=== PATIENT | female | born 1950 | race Caucasian/White ===

== ENCOUNTER 2019-05-25 06:39 | Inpatient (IN) | payer MEDICARE ==
[2019-05-14 15:42] LABS: BASOPHILS % (AUTO) 0.5 % (0-1); EOSINOPHILS % (AUTO) 0.6 % (0-6); LYMPHOCYTES # (AUTO) 1.1 X10'3 (1.1-4.8); LYMPHOCYTES % (AUTO) 15.9 % (21-51); MEAN CORPUSCULAR HEMOGLOBIN 34.6 PG (27.0-31.0); MEAN CORPUSCULAR HGB CONC 33.7 g/dL (33.0-36.5); MEAN CORPUSCULAR VOLUME 102.6 FL (78-98); MEAN PLATELET VOLUME 8.2 FL (7.4-10.4); MONOCYTES # (AUTO) 0.4 X10'3 (0-0.9); MONOCYTES % (AUTO) 6.4 % (2-12); NEUTROPHILS # (AUTO) 5.1 X10'3 (1.8-7.7); NEUTROPHILS % (AUTO) 76.6 % (42-75); PRE OP HEMATOCRIT 41.5 % (35.0-45.0); PRE OP PLATELET COUNT 337 X10'3 (140-440); RED BLOOD COUNT 4.05 X10'6 (4.20-5.60); RED CELL DISTRIBUTION WIDTH 12.9 % (11.5-14.5)
[2019-05-14 15:56] LABS: PRE OP PROTIME 10.1 SECONDS (9.0-12.0)
[2019-05-14 16:09] LABS: ALBUMIN 4.2 G/DL (3.4-5.0); ALBUMIN/GLOBULIN RATIO 1.2 (1.1-1.5); ALKALINE PHOSPHATASE 71 IU/L (46-116); BLOOD UREA NITROGEN 22 MG/DL (7-18); BUN/CREATININE RATIO 16.4 (6.6-38.0); CALCIUM 9.5 MG/DL (8.5-10.1); CHLORIDE 106 MMOL/L (99-107); CREATININE 1.34 MG/DL (0.40-0.90); PRE OP ALT 21 U/L (30-65); PRE OP ANION GAP 8 (8-16); PRE OP AST 14 U/L (10-37); PRE OP BILIRUB, TOTAL 0.3 MG/DL (0.0-1.0); PRE OP GLUCOSE 111 MG/DL (70-104); PRE OP SODIUM 141 MMOL/L (135-145); TOTAL PROTEIN 7.6 G/DL (6.4-8.2); eGFR 39 ML/MIN
[2019-05-25] VITALS (17 sets, daily range): BP systolic 79–149; BP diastolic 54–88
[~2019-05-25] VITALS: Ht 162.6 cm; Wt 103.6 kg
[~2019-05-25 06:39] MED LIST: AMLO10TA2 PO; ATOR40TA PO; ERGO500041 PO; FENO145T38 PO; FLUO-1 PO; HYDR-3972 PO; HYDR-4069 PO; IRBE300T19 PO; LEVO100T46 PO; MORP15TA PO; NORMAL SALINE IV ONE; OMEP40CA13 PO; SPIR25TA5 PO; TRANEXAMIC ACID IV ONE; cefazolin/dext.iso 2gm/50ml 50 ML IV ONE; famotidine 20mg tablet PO ONE; ringers solution, lacted 1,000 ML IV SCH; vancomycin inj 1,500 MG in normal saline 300ml IV soln IV ONE
[2019-05-25] MEDS ORDERED: FLU VACC QS2019-20 36MOS UP/PF 60 MCG/0.5 ML SYRINGE IMVAC ONE (10:15)
[2019-05-25] MEDS ORDERED: ROPIVAcaine 0.5% (5mg/ml) 30ml vial ONE ×2 (10:20→10:58)
[2019-05-25] MEDS ORDERED: HYDROcodone/acetaminophen 10/325mg tab PO ONE (10:20)
[2019-05-25] MEDS ORDERED: ketorolac trometh. 30mg/ml inj. ONE (10:20)
[2019-05-25] MEDS ORDERED: fentaNYL/PF 50MCG/1 ML 2ML syringe ONE ×3 (10:56→13:29)
[2019-05-25] MEDS ORDERED: midazolam 2 mg/2 ml injection ONE ×2 (10:56→13:30)
[2019-05-25] MEDS ORDERED: succinylcholine 20mg/ml inj IV ONE (10:56)
[2019-05-25] MEDS ORDERED: propofol inj 20 ML IV ONE (10:57)
[2019-05-25] MEDS ORDERED: LIDOcaine 2% (20mg/ml) 5ml vial ONE ×2 (10:57)
[2019-05-25] MEDS ORDERED: tranexamic acid inj. 1,000 MG in normal saline 100ml IV soln 100 ML IV ONE ×5 (11:00→18:30)
[2019-05-25] MEDS ORDERED: ringers solution, lacted 1,000 ML IV SCH (12:22)
[2019-05-25] MEDS ORDERED: sevoflurane 250ml liquid IH ONE (12:23)
[2019-05-25] MEDS ORDERED: dexamethasone sod phosphate 10mg/ml inj ONE (12:23)
[2019-05-25] MEDS ORDERED: labetalol 20mg/4ml (5mg/ml) syringe IV PRN (12:25)
[2019-05-25] MEDS ORDERED: fentaNYL/PF 50MCG/1 ML 2ML syringe IV PRN ×2 (12:25)
[2019-05-25] MEDS ORDERED: hydrALAZINE 20mg/ml inj. IV PRN (12:25)
[2019-05-25] MEDS ORDERED: morphine 4 MG/ML inj SYRINge IV PRN ×2 (12:25)
[2019-05-25] MEDS ORDERED: ondansetron/PF 4mg/2ml inj IV PRN ×2 (12:25→15:10)
[2019-05-25] MEDS ORDERED: ROPIVAcaine 0.2%/PF PAIN PUMP 550 ML IJ SCH ×2 (13:00→22:48)
[2019-05-25] MEDS ORDERED: ondansetron/PF 4mg/2ml inj ONE (13:18)
[2019-05-25] MEDS ORDERED: labetalol 20mg/4ml (5mg/ml) syringe IV ONE (14:24)
--- NOTE | 2019-05-25 14:53 | NUR ---
Received from OR via ORTHO BED WITH [facility] , accompanied by Anesthesiologist JENNI and report given by Anesthesiolgist. PATIENT WITH KYMBERLY HEAVENLY DONNED. LEFT UE WITH 20G PIV IN PLACE WITH LR RUNNING AT 100. PATIENT WITH SHOULDER WRAP AND POWDER PACK PRESENT TO RIGHT SHOUDER> + CAP REFILL AND WITH NERVE BLOCK TO RIGHT SHOULDER EXITING WITH CATHETER TO LEFT SHOULDER AREA. DONNED ON Q PUMP UPON ARRIVAL. Addendum: 05/25/19 at 1517 by Matthew Parham RN, RN Amended: Links added.
[2019-05-25] MEDS ORDERED: diphenhydrAMINE 25mg capsule PO PRN ×2 (15:10)
[2019-05-25] MEDS ORDERED: HYDROmorphone inj. 0.5 MG/0.5 ML DISP.SYRIN IV PRN (15:10)
[2019-05-25] MEDS ORDERED: oxyCODONE IR 5mg (immed. release) tablet PO PRN (15:10)
[2019-05-25] MEDS ORDERED: bisacodyl 10mg suppository rectal RC PRN (15:10)
[2019-05-25] MEDS ORDERED: HYDROmorphone 1 mg/ml syringe IV PRN (15:10)
[2019-05-25] MEDS ORDERED: magnesium hydroxide 30ml (MOM) UD suspension PO PRN (15:10)
[2019-05-25] MEDS ORDERED: acetaminophen 325mg tablet PO PRN (15:10)
--- NOTE | 2019-05-25 15:43 | NUR ---
ALL CRITERIA FOR TRANSFER TO THE FLOOR HAS BEEN ACHIEVED. VSS. BED LOW, CALL LIGHT AND VS. SET IN PLACE. RN PRESENT TO ACCEPT CARE. PATIENT RESTING COMFORTABLY IN BED. BELONGINGS SENT WITH PATIENT. DRESSINGS CDI. BABAK STAPLES PRESENT TO ASSIST WITH SET UP, 3 BAGS DELIVERED TO ROOM 4013B TALL CABINET. CARE TURNED OVER. Addendum: 05/25/19 at 1550 by Matthew Parham RN, RN Amended: Links added.
--- NOTE | 2019-05-25 15:54 | NUR ---
Patient in room ORTHO 4013. I have received report from chad Gonsales RN and had the opportunity to ask questions and assume patient care.
[2019-05-25] MEDS: ceFAZolin 1GM/D5W- ADD-VANTAGE 50 ML IV SCH (17:10)
--- NOTE | 2019-05-25 18:15 | NUR ---
Patient in room ORTHO 4013. I have received report from BABAK Bower and had the opportunity to ask questions and assume patient care.
--- NOTE | 2019-05-25 18:21 | NUR ---
Problems reprioritized. Patient report given, questions answered & plan of care reviewed with Kimberly.
[2019-05-25] MEDS: potassium cl 20mEq in 1/2 NS 1,000 ML IV SCH ×2 (18:32→23:06)
[2019-05-25] MEDS ORDERED: mag hydrox/Alum hydrox/simeth 30ml oral suspension PO PRN (19:55)
[2019-05-25] MEDS ORDERED: vancomycin/NS 1 GM ADD-VANTAGE 250 ML IV SCH (20:00)
[2019-05-25] MEDS: acetaminophen 325mg tablet PO SCH (20:04)
[2019-05-25] MEDS: morphine ER 15mg tablet PO SCH (20:05)
[2019-05-25] MEDS: hydrALAZINE 25 MG tablet PO SCH (20:05)
[2019-05-25] MEDS ORDERED: spironolactone 25 MG tablet PO SCH (21:00)
[2019-05-25] MEDS ORDERED: sennosides 8.6mg tablet PO SCH (21:00)
[2019-05-26] MEDS: ceFAZolin 1GM/D5W- ADD-VANTAGE 50 ML IV SCH (00:41)
[2019-05-26] MEDS: acetaminophen 325mg tablet PO SCH ×2 (02:00→07:31)
[2019-05-26] MEDS: oxyCODONE IR 5mg (immed. release) tablet PO PRN ×2 (02:41→08:23)
[2019-05-26 03:30] VITALS: BP 128/65
[2019-05-26 06:00] VITALS: BP 116/77
--- NOTE | 2019-05-26 06:20 | NUR ---
Patient in room ORTHO 4013. I have received report from Kimberly and had the opportunity to ask questions and assume patient care.
--- NOTE | 2019-05-26 06:23 | NUR ---
Problems reprioritized. Patient report given, questions answered & plan of care reviewed with BABAK Bower.
[2019-05-26 06:42] LABS: BASOPHILS % (AUTO) 0.2 % (0-1); EOSINOPHILS % (AUTO) 0 % (0-6); HEMATOCRIT 34.2 % (35.0-45.0); HEMOGLOBIN 11.4 g/dl (12.0-16.0); LYMPHOCYTES # (AUTO) 0.6 X10'3 (1.1-4.8); LYMPHOCYTES % (AUTO) 6.7 % (21-51); MEAN CORPUSCULAR HEMOGLOBIN 34.3 PG (27.0-31.0); MEAN CORPUSCULAR HGB CONC 33.4 g/dL (33.0-36.5); MEAN CORPUSCULAR VOLUME 102.6 FL (78-98); MEAN PLATELET VOLUME 8.3 FL (7.4-10.4); MONOCYTES # (AUTO) 0.7 X10'3 (0-0.9); MONOCYTES % (AUTO) 7.8 % (2-12); NEUTROPHILS # (AUTO) 7.6 X10'3 (1.8-7.7); NEUTROPHILS % (AUTO) 85.3 % (42-75); PLATELET COUNT 242 X10'3 (140-440); RED BLOOD COUNT 3.34 X10'6 (4.20-5.60); RED CELL DISTRIBUTION WIDTH 12.9 % (11.5-14.5); WHITE BLOOD COUNT 8.9 X10'3 (4.5-11.0)
[2019-05-26] MEDS: potassium cl 20mEq in 1/2 NS 1,000 ML IV SCH ×2 (07:06→08:24)
[2019-05-26 07:28] LABS: ANION GAP 9 (8-16); CHLORIDE 103 MMOL/L (99-107); POTASSIUM 4.4 MMOL/L (3.5-5.1); SODIUM 138 MMOL/L (135-145)
[2019-05-26] MEDS: hydrALAZINE 25 MG tablet PO SCH (07:28)
[2019-05-26] MEDS: morphine ER 15mg tablet PO SCH (07:29)
[2019-05-26 07:37] VITALS: BP 143/80
[2019-05-26] MEDS ORDERED: atorvastatin 20mg tablet PO SCH (08:00)
[2019-05-26] MEDS ORDERED: amLODIPine 5mg tablet PO SCH (08:00)
[2019-05-26] MEDS ORDERED: FLUoxetine 20mg capsule PO SCH (08:00)
[2019-05-26] MEDS ORDERED: levoTHYROXINE 125mcg tablet PO SCH (08:00)
[2019-05-26] MEDS ORDERED: fenofibrate 145mg tablet PO SCH (08:00)
[2019-05-26] MEDS ORDERED: losartan 50mg tablet PO SCH (08:00)
[2019-05-26] MEDS ORDERED: aspirin 325mg tablet PO SCH (08:30)
--- NOTE | 2019-05-26 10:55 | NUR ---
Reviewed discharge instructions with pt. Pt verbalized understanding. Pt is alert, oriented and does not have c/o pain or discomfort at this time. All of pt's belongings were returned to pt. Pt was wheeled downstairs where she will be driven home by family/friend.
[2019-05-27] MEDS ORDERED: acetaminophen 325mg tablet PO PRN (15:10)
[2019-05-31] MEDS ORDERED: ergocalciferol (Vitamin D) 50,000 unit capsule PO SCH (15:10)
== END 2019-05-26 10:45 | disposition home or self-care (01) | DRG 483 ==
LOC: PAS IN 06:39 → EDSTATUS 09:45 → PAS IN 15:25 → ORTHO 4S 15:50
PROVIDERS: ADMIT Orthopaedic Surgery; ATTEND Orthopaedic Surgery
PROC: 0LS30ZZ Reposition Right Upper Arm Tendon, Open Approach (ICD-10-PCS; 2019-05-25)
PROC: 0RHJ04Z Insertion of Internal Fixation Device into Right Shoulder Joint, Open Approach (ICD-10-PCS; 2019-05-25)
PROC: 0RRJ0JZ Replacement of Right Shoulder Joint with Synthetic Substitute, Open Approach (ICD-10-PCS; principal; 2019-05-25 12:23)
DX: M19.011 Primary osteoarthritis, right shoulder (principal); D62 Acute posthemorrhagic anemia; E66.9 Obesity, unspecified; Z96.651 Presence of right artificial knee joint; I10 Essential (primary) hypertension; E03.9 Hypothyroidism, unspecified; N18.3 Chronic kidney disease, stage 3 (moderate); I12.9 Hypertensive chronic kidney disease with stage 1 through stage 4 chronic kidney disease, or unspecified chronic kidney disease; I48.91 Unspecified atrial fibrillation; M75.21 Bicipital tendinitis, right shoulder; K21.9 Gastro-esophageal reflux disease without esophagitis; I25.10 Atherosclerotic heart disease of native coronary artery without angina pectoris; F32.9 Major depressive disorder, single episode, unspecified; E78.5 Hyperlipidemia, unspecified; Z79.899 Other long term (current) drug therapy; Z79.890 Hormone replacement therapy; Z79.82 Long term (current) use of aspirin; Z95.0 Presence of cardiac pacemaker; Z86.73 Personal history of transient ischemic attack (TIA), and cerebral infarction without residual deficits; Z68.39 Body mass index [BMI] 39.0-39.9, adult
CPT/HCPCS: 36415; 80051; 80053; 82948; 84443; 85025; 85610; 85730; 87081; 97161; 97530; A4565; A4618; A7000; A9272; C1713; C1776; G0378; J0330; J0690; J1100; J1885; J2001; J2250; J2405; J2704; J2795; J3010; J3370; J3480; J3490; J7120; Q2037

== ENCOUNTER 2020-04-07 05:35 | Inpatient (IN) | payer MEDICARE ==
[2020-03-31 14:56] LABS: BASOPHILS % (AUTO) 0.5 % (0-1); EOSINOPHILS # (AUTO) 0.1 X10'3 (0-0.9); LYMPHOCYTES # (AUTO) 0.6 X10'3 (1.1-4.8); LYMPHOCYTES % (AUTO) 10.9 % (21-51); MEAN CORPUSCULAR HEMOGLOBIN 33.3 PG (27.0-31.0); MEAN CORPUSCULAR HGB CONC 32.9 g/dL (33.0-36.5); MEAN CORPUSCULAR VOLUME 101.4 FL (78-98); MEAN PLATELET VOLUME 8.3 FL (7.4-10.4); MONOCYTES # (AUTO) 0.4 X10'3 (0-0.9); MONOCYTES % (AUTO) 7.6 % (2-12); NEUTROPHILS # (AUTO) 4.6 X10'3 (1.8-7.7); PRE OP HEMATOCRIT 38.3 % (35.0-45.0); PRE OP HEMOGLOBIN 12.6 g/dL (12.0-16.0); PRE OP PLATELET COUNT 306 X10'3 (140-440); RED BLOOD COUNT 3.78 X10'6 (4.20-5.60)
[2020-03-31 15:20] LABS: ALBUMIN 3.8 G/DL (3.4-5.0); ALBUMIN/GLOBULIN RATIO 1.3 (1.1-1.5); ALKALINE PHOSPHATASE 71 IU/L (46-116); BLOOD UREA NITROGEN 21 MG/DL (7-18); BUN/CREATININE RATIO 14.7 (6.6-38.0); CALCIUM 9.3 MG/DL (8.5-10.1); CHLORIDE 105 MMOL/L (99-107); CREATININE 1.43 MG/DL (0.40-0.90); PRE OP ALT 25 U/L (30-65); PRE OP ANION GAP 6 (8-16); PRE OP AST 20 U/L (10-37); PRE OP BILIRUB, TOTAL 0.5 MG/DL (0.0-1.0); PRE OP GLUCOSE 96 MG/DL (70-104); PRE OP POTASSIUM 4.1 MMOL/L (3.4-5.1); PRE OP SODIUM 139 MMOL/L (135-145); TOTAL CARBON DIOXIDE 28.4 MMOL/L (24-32); TOTAL PROTEIN 6.8 G/DL (6.4-8.2); eGFR 36 ML/MIN
[~2020-04-07] VITALS: Ht 167.6 cm; Wt 106.1 kg
[~2020-04-07 05:35] MED LIST changes: -ERGO500041 PO; +FURO40TA4 PO; +IRBE300T18 PO; -IRBE300T19 PO; +MORP-92 PO; -MORP15TA PO; -NORMAL SALINE IV ONE; +POTA-82 PO; -TRANEXAMIC ACID IV ONE; +ceFAZolin 2gm in dextrose, iso 50 ML IV ONE; -cefazolin/dext.iso 2gm/50ml 50 ML IV ONE; +tranexamic acid 1gm/0.7% sal. 100 ML IV ONE; +vancomycin 1,500 MG in NS 300ml IV soln IV ONE; -vancomycin inj 1,500 MG in normal saline 300ml IV soln IV ONE
--- NOTE | 2020-04-07 06:30 | NUR ---
PT HAD DOG SCRATCH TO LEFT FOREARM, DR. CENTENO AWARE AND CANCELLED SURGERY. OFFICE WILL RESCHEDULE. PT TOOK ALL BELONGINGS WITH HER UPON DISCHARGE INCLUDING HER CPAP. PT VERY COOPERATIVE AND UNDERSTANDING REGARDING CANCELLATION.
== END 2020-04-07 06:30 | disposition home or self-care (01) | DRG 554 ==
LOC: PAS IN 05:35 → EDSTATUS 07:30
PROVIDERS: ADMIT Orthopaedic Surgery; ATTEND Orthopaedic Surgery
DX: M19.012 Primary osteoarthritis, left shoulder (principal); Z53.8 Procedure and treatment not carried out for other reasons
CPT/HCPCS: 36415; 80053; 84443; 85025; 87081; 87635; J3370; J7040; J7120

== ENCOUNTER 2021-12-29 12:00 | Day surgery (SDC) | payer BC ==
[~2021-12-29] VITALS: Ht 167.6 cm; Wt 99.8 kg
[~2021-12-29 12:00] MED LIST changes: -OMEP40CA13 PO; +OMEP40CA21 PO; -ceFAZolin 2gm in dextrose, iso 50 ML IV ONE; -famotidine 20mg tablet PO ONE; -ringers solution, lacted 1,000 ML IV SCH; -tranexamic acid 1gm/0.7% sal. 100 ML IV ONE; -vancomycin 1,500 MG in NS 300ml IV soln IV ONE
[2021-12-29 16:19] LABS: LYMPHOCYTES # (AUTO) 0.9 X10'3 (1.1-4.8); MONOCYTES # (AUTO) 0.5 X10'3 (0-0.9); MONOCYTES % (AUTO) 8.8 % (2-12); PRE OP HEMOGLOBIN 13.4 g/dL (12.0-16.0)
[2021-12-29 16:20] LABS: BASOPHILS % (AUTO) 0.6 % (0-1); EOSINOPHILS % (AUTO) 0.9 % (0-6); LYMPHOCYTES % (AUTO) 16.3 % (21-51); MEAN CORPUSCULAR HEMOGLOBIN 34.1 PG (27.0-31.0); MEAN CORPUSCULAR HGB CONC 33.1 g/dL (33.0-36.5); MEAN CORPUSCULAR VOLUME 103.1 FL (78-98); MEAN PLATELET VOLUME 8.1 FL (7.4-10.4); NEUTROPHILS % (AUTO) 73.4 % (42-75); PRE OP HEMATOCRIT 40.6 % (35.0-45.0); PRE OP PLATELET COUNT 271 X10'3 (140-440); RED BLOOD COUNT 3.94 X10'6 (4.20-5.60); RED CELL DISTRIBUTION WIDTH 12.8 % (11.5-14.5)
[2021-12-29 16:33] LABS: ALBUMIN 3.9 G/DL (3.4-5.0); ALBUMIN/GLOBULIN RATIO 1.3 (1.1-1.5); ALKALINE PHOSPHATASE 62 IU/L (46-116); BLOOD UREA NITROGEN 14 MG/DL (7-18); BUN/CREATININE RATIO 16.7 (6.6-38.0); CALCIUM 8.7 MG/DL (8.5-10.1); CHLORIDE 106 MMOL/L (99-107); CREATININE 0.84 MG/DL (0.40-0.90); PRE OP ALT 17 U/L (30-65); PRE OP ANION GAP 7 (8-16); PRE OP AST 17 U/L (10-37); PRE OP BILIRUB, TOTAL 0.5 MG/DL (0.0-1.0); PRE OP GLUCOSE 86 MG/DL (70-104); PRE OP SODIUM 140 MMOL/L (135-145); TOTAL CARBON DIOXIDE 26.8 MMOL/L (24-32); TOTAL PROTEIN 6.9 G/DL (6.4-8.2); eGFR 66 ML/MIN
[2021-12-29] MEDS ORDERED: TRAZ150T78 PO (16:34)
[2021-12-29] MEDS ORDERED: TRAM50TA2 PO (16:34)
[2022-01-04] MEDS ORDERED: FENO160T PO (13:49)
[2022-01-04] MEDS ORDERED: LEVO125T8 PO (13:49)
[2022-01-05] MEDS ORDERED: ringers solution, lacted 1,000 ML IV SCH (05:00)
[2022-01-05] MEDS ORDERED: vancomycin 1,500 MG in NS 300ml IV soln IV ONE (05:30)
[2022-01-05] MEDS ORDERED: ceFAZolin inj. 2,000 MG in dextrose 5%-water 100 ML IV ONE (05:30)
[2022-01-05] MEDS ORDERED: tranexamic acid 650mg tablet PO ONE (05:30)
[2022-01-05] MEDS ORDERED: famotidine 20mg tablet PO ONE (05:30)
== END 2021-12-29 23:59 | disposition home or self-care (01) ==
LOC: PRE-OP 12:00 → EDSTATUS 01-05 13:30
PROVIDERS: ATTEND Orthopaedic Surgery
DX: Z01.818 Encounter for other preprocedural examination (principal); M75.122 Complete rotator cuff tear or rupture of left shoulder, not specified as traumatic; G47.30 Sleep apnea, unspecified; F32.A Depression, unspecified; K21.9 Gastro-esophageal reflux disease without esophagitis; M19.90 Unspecified osteoarthritis, unspecified site; I12.9 Hypertensive chronic kidney disease with stage 1 through stage 4 chronic kidney disease, or unspecified chronic kidney disease; N18.9 Chronic kidney disease, unspecified; E66.9 Obesity, unspecified; Z68.35 Body mass index [BMI] 35.0-35.9, adult; Z72.89 Other problems related to lifestyle; Z86.73 Personal history of transient ischemic attack (TIA), and cerebral infarction without residual deficits; Z98.84 Bariatric surgery status; Z95.0 Presence of cardiac pacemaker; Z98.890 Other specified postprocedural states; Z90.710 Acquired absence of both cervix and uterus; Z96.611 Presence of right artificial shoulder joint
CPT/HCPCS: 80053; 85025; 87081; J0690; J3370; J7040; J7060; J7120

== ENCOUNTER 2022-04-09 10:17 | Inpatient (IN) | payer BC ==
[2022-04-02 12:08] LABS: BASOPHILS % (AUTO) 0.5 % (0-1); LYMPHOCYTES # (AUTO) 0.8 X10'3 (1.1-4.8); LYMPHOCYTES % (AUTO) 17.3 % (21-51); MEAN CORPUSCULAR HEMOGLOBIN 33.7 PG (27.0-31.0); MEAN CORPUSCULAR HGB CONC 33.8 g/dL (33.0-36.5); MEAN CORPUSCULAR VOLUME 99.7 FL (78-98); MEAN PLATELET VOLUME 8.3 FL (7.4-10.4); MONOCYTES # (AUTO) 0.4 X10'3 (0-0.9); MONOCYTES % (AUTO) 8.2 % (2-12); NEUTROPHILS # (AUTO) 3.6 X10'3 (1.8-7.7); PRE OP HEMATOCRIT 39.3 % (35.0-45.0); PRE OP HEMOGLOBIN 13.3 g/dL (12.0-16.0); PRE OP PLATELET COUNT 276 X10'3 (140-440); RED BLOOD COUNT 3.94 X10'6 (4.20-5.60); RED CELL DISTRIBUTION WIDTH 12.6 % (11.5-14.5)
[2022-04-02 12:32] LABS: ALBUMIN/GLOBULIN RATIO 1.3 (1.1-1.5); ALKALINE PHOSPHATASE 63 IU/L (46-116); BLOOD UREA NITROGEN 13 MG/DL (7-18); BUN/CREATININE RATIO 14.4 (6.6-38.0); CALCIUM 8.9 MG/DL (8.5-10.1); CHLORIDE 103 MMOL/L (99-107); PRE OP ALT 21 U/L (30-65); PRE OP ANION GAP 11 (8-16); PRE OP AST 19 U/L (10-37); PRE OP BILIRUB, TOTAL 0.6 MG/DL (0.0-1.0); PRE OP GLUCOSE 98 MG/DL (70-104); PRE OP POTASSIUM 3.5 MMOL/L (3.4-5.1); PRE OP SODIUM 140 MMOL/L (135-145); TOTAL CARBON DIOXIDE 25.7 MMOL/L (24-32); TOTAL PROTEIN 7.2 G/DL (6.4-8.2); eGFR 61 ML/MIN
[~2022-04-09] VITALS: Ht 167.6 cm; Wt 100.0 kg
[2022-04-09] VITALS (16 sets, daily range): BP systolic 107–159; BP diastolic 49–84
[~2022-04-09 10:17] MED LIST changes: -FENO145T38 PO; +FENO160T PO; -FURO40TA4 PO; -HYDR-3972 PO; -LEVO100T46 PO; +LEVO125T8 PO; -MORP-92 PO; -POTA-82 PO; -SPIR25TA5 PO; +TRAM50TA2 PO; +TRAZ150T78 PO; +ceFAZolin inj. 2,000 MG in dextrose 5%-water 100 ML IV ONE; +famotidine 20mg tablet PO ONE; +tranexamic acid 650mg tablet PO ONE; +vancomycin 1,500 MG in NS 300ml IV soln IV ONE
[2022-04-09] MEDS: ringers solution, lacted 1,000 ML IV SCH ×2 (11:04→17:58)
[2022-04-09] MEDS ORDERED: ROPIVAcaine 0.5% (5mg/ml) 30ml vial ONE ×2 (11:50→12:08)
[2022-04-09] MEDS ORDERED: ketorolac trometh. 30mg/ml inj. ONE (12:08)
[2022-04-09] MEDS ORDERED: morphine 2 MG/ML inj. syringe IV PRN (12:20)
[2022-04-09] MEDS ORDERED: morphine 4 MG/ML inj SYRINge IV PRN (12:20)
[2022-04-09] MEDS ORDERED: ROPIVAcaine 0.2%/PF PUMP/bolus 545 ML INTERSCALE SCH (12:20)
[2022-04-09] MEDS ORDERED: fentaNYL/PF 50MCG/1 ML 2ML syringe IV PRN ×2 (12:20)
[2022-04-09] MEDS ORDERED: labetalol 20mg/4ml (5mg/ml) syringe IV PRN (12:20)
[2022-04-09] MEDS ORDERED: ROPIVAcaine 0.2% (10 MG/5 ML) BOLUS INJECTION INTERSCALE PRN (12:20)
[2022-04-09] MEDS ORDERED: ondansetron/PF 4mg/2ml inj IV PRN ×2 (12:20→14:40)
[2022-04-09] MEDS ORDERED: ringers solution, lacted 1,000 ML IV SCH (12:20)
[2022-04-09] MEDS ORDERED: hydrALAZINE 20mg/ml inj. IV PRN (12:20)
[2022-04-09] MEDS ORDERED: LIDOcaine 1% (10mg/ml)w/preservative inj. 20ml MDV ONE (12:55)
[2022-04-09] MEDS ORDERED: midazolam 1 mg/ML 2ml injection ONE (12:55)
[2022-04-09] MEDS ORDERED: propofol 10mg/ml 20ml vial IV ONE (12:55)
[2022-04-09] MEDS ORDERED: hydrALAZINE 20mg/ml inj. IV ONE (12:55)
[2022-04-09] MEDS ORDERED: ondansetron/PF 4mg/2ml inj ONE (12:55)
[2022-04-09] MEDS ORDERED: fentaNYL/PF 50MCG/1 ML 2ML syringe ONE (12:55)
[2022-04-09] MEDS ORDERED: dexamethasone sod phosphate 10mg/ml inj ONE (12:55)
[2022-04-09] MEDS ORDERED: sevoflurane 250ml liquid IH ONE (12:55)
[2022-04-09] MEDS ORDERED: pantoprazole 40mg Tablet.DR PO PRN (14:40)
[2022-04-09] MEDS ORDERED: HYDROmorphone 1 mg/ml syringe IV PRN (14:40)
[2022-04-09] MEDS ORDERED: bisacodyl 10mg suppository rectal RC PRN (14:40)
[2022-04-09] MEDS ORDERED: acetaminophen 325mg tablet PO PRN (14:40)
[2022-04-09] MEDS ORDERED: magnesium hydroxide 30ml (MOM) UD suspension PO PRN (14:40)
[2022-04-09] MEDS ORDERED: HYDROcodone/acetaminophen 10/325mg tab PO PRN (14:40)
[2022-04-09] MEDS ORDERED: oxyCODONE IR 5mg (immed. release) tablet PO PRN ×2 (14:40)
[2022-04-09] MEDS ORDERED: diphenhydrAMINE 25mg capsule PO PRN ×2 (14:40)
[2022-04-09] MEDS ORDERED: naloxone 0.4 mg/ml inj IV PRN (14:40)
[2022-04-09] MEDS ORDERED: HYDROmorphone inj. 0.5 MG/0.5 ML DISP.SYRIN IV PRN (14:40)
--- NOTE | 2022-04-09 14:40 | NUR ---
Received from OR via SURGICAL BED WITH [facility] , accompanied by Anesthesiologist JENNI and report given by Anesthesiolgist. pT WITH 20 GAUGE PIV IN REU. runninG LR AT 1000. L SHOULDER WRAP AND POWDER PACK. STRONG RADIAL PULSE. PT DENIES PAIN AT THIS TIME. 10 l mask 97% SATS, SCDS DONNED Addendum: 04/09/22 at 1459 by Matthew Parham RN, RN Amended: Links added.
--- NOTE | 2022-04-09 15:23 | NUR ---
PATIENT RN FROM OR MENTIONED SPOTS OF SMALL PETECHIA IN LEFT AXILLA AREA FROM TAPE FROM THE OR. WILL CONTINUE TO ASSESS. Addendum: 04/09/22 at 1526 by Matthew Dong - RN RN Amended: Links added.
--- NOTE | 2022-04-09 16:10 | NUR ---
CARE OF PATIENT AND REPORT HAS BEEN CALLED. ALL QUESTIONS ANSWERED TO ACCEPTING RN. PATIENT HAS MET ALL CRITERIA FOR TRANSFER TO THE S ORTHO FLOOR. VSS. DRESSINGS INTACT. BED LOW, CALL LIGHT PRESENT AND 2 RAILS UP. BABAK BERRY PRESENT TO ACCEPT. PATIENT AMBULATED TO BATHROOM ON 4TH FLOOR UPON ARRIVAL AND BACK TO BED. VOIDED WITHOUT PROBLEM. POSITIONED IN BED TO COMFORT. PATIENT RN PRESENT TO ACCEPT PATIENT. Addendum: 04/09/22 at 1629 by Matthew Dong - BABAK RN Amended: Links added.
[2022-04-09] MEDS: ceFAZolin/D5W- 1GM premix 50 ML IV SCH (17:57)
[2022-04-09] MEDS: hydrALAZINE 25 MG tablet PO SCH ×3 (17:58→20:25)
--- NOTE | 2022-04-09 18:39 | NUR ---
Gave report to Myesha HILLIARD.
[2022-04-09] MEDS ORDERED: vancomycin/NS 1 GM ADD-VANTAGE 250 ML IV SCH (20:00)
[2022-04-09] MEDS: potassium cl 20mEq in 1/2 NS 1,000 ML IV SCH ×2 (20:23→22:40)
[2022-04-09] MEDS: acetaminophen 325mg tablet PO SCH (20:24)
[2022-04-09] MEDS: traMADol 50MG tablet PO SCH (20:25)
[2022-04-09] MEDS ORDERED: traZODone 150mg tablet PO SCH (21:00)
[2022-04-09] MEDS ORDERED: sennosides 8.6mg tablet PO SCH (21:00)
[2022-04-10] MEDS: ceFAZolin/D5W- 1GM premix 50 ML IV SCH (00:02)
[2022-04-10 02:00] VITALS: BP 149/73
[2022-04-10] MEDS: acetaminophen 325mg tablet PO SCH ×2 (02:38→08:50)
[2022-04-10] MEDS: traMADol 50MG tablet PO SCH ×2 (02:38→08:00)
[2022-04-10] MEDS: HYDROcodone/acetaminophen 10/325mg tab PO PRN ×2 (02:39→13:16)
[2022-04-10 06:00] VITALS: BP 153/76
--- NOTE | 2022-04-10 06:22 | NUR ---
Problems reprioritized. Patient report given, questions answered & plan of care reviewed with BABAK Baldwin.
[2022-04-10 06:33] LABS: BASOPHILS % (AUTO) 0.1 % (0-1); EOSINOPHILS % (AUTO) 0 % (0-6); HEMATOCRIT 35.1 % (35.0-45.0); HEMOGLOBIN 11.8 g/dl (12.0-16.0); LYMPHOCYTES # (AUTO) 0.4 X10'3 (1.1-4.8); LYMPHOCYTES % (AUTO) 5.1 % (21-51); MEAN CORPUSCULAR HEMOGLOBIN 33.5 PG (27.0-31.0); MEAN CORPUSCULAR HGB CONC 33.6 g/dL (33.0-36.5); MEAN CORPUSCULAR VOLUME 99.5 FL (78-98); MEAN PLATELET VOLUME 8.5 FL (7.4-10.4); MONOCYTES # (AUTO) 0.6 X10'3 (0-0.9); MONOCYTES % (AUTO) 8.1 % (2-12); NEUTROPHILS # (AUTO) 6.8 X10'3 (1.8-7.7); NEUTROPHILS % (AUTO) 86.7 % (42-75); PLATELET COUNT 248 X10'3 (140-440); RED BLOOD COUNT 3.53 X10'6 (4.20-5.60); RED CELL DISTRIBUTION WIDTH 12.6 % (11.5-14.5); WHITE BLOOD COUNT 7.8 X10'3 (4.5-11.0)
[2022-04-10] MEDS: potassium cl 20mEq in 1/2 NS 1,000 ML IV SCH (06:40)
--- NOTE | 2022-04-10 06:42 | NUR ---
Patient in room ORTHO 4022. I have received report from BABAK Brunner and had the opportunity to ask questions and assume patient care.
[2022-04-10 06:43] LABS: ANION GAP 12 (8-16); CHLORIDE 107 MMOL/L (99-107); POTASSIUM 3.4 MMOL/L (3.5-5.1); SODIUM 145 MMOL/L (135-145)
[2022-04-10] MEDS ORDERED: levoTHYROXINE 125mcg tablet PO SCH (08:00)
[2022-04-10] MEDS ORDERED: fenofibrate 145mg tablet PO SCH (08:00)
[2022-04-10] MEDS ORDERED: losartan 50mg tablet PO SCH (08:00)
[2022-04-10] MEDS ORDERED: atorvastatin 20mg tablet PO SCH (08:00)
[2022-04-10] MEDS ORDERED: amLODIPine 5mg tablet PO SCH (08:00)
[2022-04-10] MEDS ORDERED: FLUoxetine 20mg capsule PO SCH (08:00)
[2022-04-10] MEDS ORDERED: aspirin 325mg tablet PO SCH (08:30)
[2022-04-10] MEDS: hydrALAZINE 25 MG tablet PO SCH (08:49)
[2022-04-10 10:00] VITALS: BP 130/68
--- NOTE | 2022-04-10 14:16 | NUR ---
Pt discharged to home at 1330, with all belongings, in private vehicle accompanied by son. Discharge instructions and medications reviewed. New prescriptions filled by pt ENVIRONMENTAL COMPLIANCE MANAGER. Pt states she has a follow up appointment already scheduled with Dr Rayo. Post op instruction provided, as well as restrictions for movement and exercises taught by PT. Pt states understanding and willingness to comply with all discharge instructions. IV DC'd, cannula intact. [facility] by PCT.
[2022-04-11] MEDS ORDERED: acetaminophen 325mg tablet PO PRN (14:40)
== END 2022-04-10 13:30 | disposition home or self-care (01) | DRG 483 ==
LOC: PAS 10:17 → ORTHO 4S 14:42 → PAS 17:15 → ORTHO 4S 17:15 → PAS 04-10 13:30 → ORTHO 4S 04-10 13:30
PROVIDERS: ADMIT Orthopaedic Surgery; ATTEND Orthopaedic Surgery
PROC: 0LS40ZZ Reposition Left Upper Arm Tendon, Open Approach (ICD-10-PCS; 2022-04-09)
PROC: 3E0T3BZ Introduction of Anesthetic Agent into Peripheral Nerves and Plexi, Percutaneous Approach (ICD-10-PCS; 2022-04-09)
PROC: 3E0T33Z Introduction of Anti-inflammatory into Peripheral Nerves and Plexi, Percutaneous Approach (ICD-10-PCS; 2022-04-09)
PROC: 0RRK00Z Replacement of Left Shoulder Joint with Reverse Ball and Socket Synthetic Substitute, Open Approach (ICD-10-PCS; principal; 2022-04-09 12:55)
DX: M19.012 Primary osteoarthritis, left shoulder (principal); M75.122 Complete rotator cuff tear or rupture of left shoulder, not specified as traumatic; M65.812 Other synovitis and tenosynovitis, left shoulder; G47.30 Sleep apnea, unspecified; I12.9 Hypertensive chronic kidney disease with stage 1 through stage 4 chronic kidney disease, or unspecified chronic kidney disease; N18.30 Chronic kidney disease, stage 3 unspecified; F32.A Depression, unspecified; E03.9 Hypothyroidism, unspecified; K21.9 Gastro-esophageal reflux disease without esophagitis; E66.9 Obesity, unspecified; Z68.35 Body mass index [BMI] 35.0-35.9, adult; S42 Fracture of shoulder and upper arm; Z79.899 Other long term (current) drug therapy
CPT/HCPCS: 36415; 80051; 80053; 82948; 84443; 85025; 87081; 87811; 93005; 97162; 97530; A4565; A4615; A4618; A7000; C1776; G0378; J0360; J0690; J1100; J1885; J2250; J2405; J2704; J2795; J3010; J3370; J3480; J3490; J7040; J7060; J7120

== ENCOUNTER 2023-01-19 08:11 | Inpatient (IN) | payer BC ==
[~2023-01-19] VITALS: Ht 167.6 cm; Wt 103.2 kg
[2023-01-19] VITALS (14 sets, daily range): BP systolic 135–188; BP diastolic 62–89
[~2023-01-19 08:11] MED LIST changes: -ceFAZolin inj. 2,000 MG in dextrose 5%-water 100 ML IV ONE; -famotidine 20mg tablet PO ONE; -tranexamic acid 650mg tablet PO ONE; -vancomycin 1,500 MG in NS 300ml IV soln IV ONE
[2023-01-19] MEDS ORDERED: morphine 4 MG/ML inj SYRINge IV ONE ×2 (08:25→11:25)
[2023-01-19] MEDS ORDERED: normal saline 1000ML IV soln IVB ONE (08:25)
[2023-01-19 09:09] LABS: BASOPHILS % (AUTO) 0.5 % (0-1); EOSINOPHILS % (AUTO) 0.6 % (0-6); HEMATOCRIT 40.6 % (35.0-45.0); HEMOGLOBIN 12.8 g/dl (12.0-16.0); LYMPHOCYTES # (AUTO) 0.8 X10'3 (1.1-4.8); LYMPHOCYTES % (AUTO) 12.3 % (21-51); MEAN CORPUSCULAR HEMOGLOBIN 31.5 PG (27.0-31.0); MEAN CORPUSCULAR HGB CONC 31.6 g/dL (33.0-36.5); MEAN CORPUSCULAR VOLUME 99.6 FL (78-98); MEAN PLATELET VOLUME 8.2 FL (7.4-10.4); MONOCYTES # (AUTO) 0.7 X10'3 (0-0.9); MONOCYTES % (AUTO) 10.4 % (2-12); NEUTROPHILS # (AUTO) 5.1 X10'3 (1.8-7.7); NEUTROPHILS % (AUTO) 76.2 % (42-75); PLATELET COUNT 246 X10'3 (140-440); RED BLOOD COUNT 4.07 X10'6 (4.20-5.60); RED CELL DISTRIBUTION WIDTH 15.5 % (11.5-14.5); WHITE BLOOD COUNT 6.6 X10'3 (4.5-11.0)
[2023-01-19] MEDS ORDERED: ATOR-2 PO (09:12)
[2023-01-19] MEDS ORDERED: EZET10TA48 PO (09:19)
[2023-01-19] MEDS ORDERED: ACET-75 PO (09:19)
[2023-01-19 09:30] LABS: ALANINE AMINOTRANSFERASE 20 U/L (12-78); ALBUMIN 3.8 G/DL (3.4-5.0); ALBUMIN/GLOBULIN RATIO 1.2 (1.1-1.5); ALKALINE PHOSPHATASE 66 IU/L (46-116); ANION GAP 12 (8-16); ASPARTATE AMINO TRANSFERASE 25 U/L (10-37); BILIRUBIN,TOTAL 0.7 MG/DL (0.1-1.0); BLOOD UREA NITROGEN 27 MG/DL (7-18); BUN/CREATININE RATIO 26.5 (10.0-20.0); CALCIUM 9.1 MG/DL (8.5-10.1); CHLORIDE 100 MMOL/L (99-107); CREATINE KINASE 409 U/L (26-192); CREATININE 1.02 MG/DL (0.40-0.90); GLUCOSE 134 MG/DL (70-104); POTASSIUM 3.3 MMOL/L (3.5-5.1); SODIUM 135 MMOL/L (135-145); TOTAL PROTEIN 6.9 G/DL (6.4-8.2); eGFR 53 ML/MIN
--- NOTE | 2023-01-19 11:26 | NUR ---
Patient's home medications she has brought to the hospital pharmacy department with patient's verbal consent.
[2023-01-19 12:17] LABS: CLARITY,URINE CLEAR (Clear); COLOR,URINE YELLOW (Yellow); GLUCOSE, URINE NEGATIVE (Neg); KETONES,URINE NEGATIVE (Neg); LEUKOCYTE ESTERASE ,URINE NEGATIVE (Neg); NITRITES, URINE NEGATIVE (Neg); OCCULT BLOOD,URINE NEGATIVE (Neg); PH,URINE 5.5 (4.8-8.0); PROTEIN,URINE NEGATIVE (Neg); UA COLLECTION TYPE CLN CATCH MIDSTREAM
[2023-01-19] MEDS ORDERED: pantoprazole 40mg Tablet.DR PO PRN (13:40)
[2023-01-19] MEDS: morphine 2 MG/ML inj. syringe IV PRN ×2 (13:42→15:53)
[2023-01-19] MEDS ORDERED: morphine 2 MG/ML inj. syringe IV PRN ×3 (13:45→18:35)
[2023-01-19] MEDS ORDERED: magnesium 4gm in 100ml NS 100 ML IV PRN (13:45)
[2023-01-19] MEDS ORDERED: potassium Cl 20 mEq SR tablet PO PRN ×2 (13:45)
[2023-01-19] MEDS ORDERED: PERFLUTREN PROTEIN-A MICROSPHR (Optison) 0.22 MG/ML 3ML VIAL IV ONE (13:45)
[2023-01-19] MEDS ORDERED: acetaminophen 650mg rectal suppository RC PRN (13:45)
[2023-01-19] MEDS ORDERED: magnesium Cl slow-release 64mg tablet PO PRN (13:45)
[2023-01-19] MEDS ORDERED: magnesium hydroxide 30ml (MOM) UD suspension PO PRN (13:45)
[2023-01-19] MEDS ORDERED: acetaminophen 325mg tablet PO PRN ×3 (13:45→13:47)
[2023-01-19] MEDS ORDERED: magnesium 2GM in 50ml NS 50 ML IV PRN (13:45)
[2023-01-19] MEDS ORDERED: mag hydrox/Alum hydrox/simeth 30ml oral suspension PO PRN (13:45)
[2023-01-19] MEDS ORDERED: potassium Cl 40MEQ/1/2NS 520ml 520 ML IV PRN (13:45)
[2023-01-19] MEDS ORDERED: ondansetron/PF 4mg/2ml inj IV PRN ×2 (13:45→18:35)
[2023-01-19] MEDS ORDERED: HYDROcodone/acetaminophen 5mg/325mg tablet PO PRN (13:45)
[2023-01-19] MEDS ORDERED: diphenhydrAMINE 25mg capsule PO PRN (13:45)
[2023-01-19 14:03] LABS: HEMOGLOBIN A1C 5.4 % (4.5-6.2)
[2023-01-19] MEDS: normal saline 1000ml 1,000 ML IV SCH (14:18)
[2023-01-19] MEDS: traMADol 50MG tablet PO SCH ×2 (14:19→21:56)
--- NOTE | 2023-01-19 14:26 | NUR ---
Paged Dr. Fulton Message: CHELSEA Flannery RN RE: Anna Issa. Can patient have a carter catheter order? She has left lower leg fracture.
[2023-01-19] MEDS ORDERED: LIDOcaine 2% 10ml TOPICAL JELLY (Urojet) TP ONE (15:00)
[2023-01-19] MEDS ORDERED: LidoCAINE 2% Topical Jelly 11mL syringe TOP ONE (15:05)
--- NOTE | 2023-01-19 15:55 | NUR ---
Dr. Rosa came by to speak to the patient about surgery. Per Dr. Rosa, patient might go to surgery today but he will check with the OR first if it is possible.
[2023-01-19] MEDS: hydrALAZINE 25 MG tablet PO SCH ×2 (17:00→21:56)
--- NOTE | 2023-01-19 17:09 | NUR ---
I spoke to the OR charge nurse about surgery schedule, I was told that it could be tonight. Patient aware
[2023-01-19] MEDS ORDERED: acetaminophen 1,000mg/100ml IV 100 ML IV PRN (18:35)
[2023-01-19] MEDS ORDERED: labetalol 20mg/4ml (5mg/ml) syringe IV PRN (18:35)
[2023-01-19] MEDS ORDERED: proCHLORperazine 10 MG/2 ml inj IV PRN (18:35)
[2023-01-19] MEDS ORDERED: meperidine/PF 25mg/ml syringe IV PRN (18:35)
[2023-01-19] MEDS ORDERED: ringers solution, lacted 1,000 ML IV SCH (18:35)
[2023-01-19] MEDS ORDERED: HYDROmorphone/PF 0.2 MG/ML SYRINGE IV PRN ×2 (18:35)
[2023-01-19] MEDS ORDERED: hydrALAZINE 20mg/ml inj. IV PRN (18:35)
[2023-01-19] MEDS ORDERED: morphine 4 MG/ML inj SYRINge IV PRN (18:35)
[2023-01-19] MEDS ORDERED: cloNIDine hcl/PF 100mcg/ml inj ONE (18:40)
[2023-01-19] MEDS ORDERED: fentaNYL/PF 50MCG/1 ML 2ML syringe ONE (18:44)
[2023-01-19] MEDS ORDERED: midazolam 1 mg/ML 2ml injection ONE (18:45)
[2023-01-19] MEDS ORDERED: sevoflurane 250ml liquid IH ONE (18:51)
[2023-01-19] MEDS ORDERED: ROPIVAcaine 0.5% (5mg/ml) 30ml vial ONE (19:17)
[2023-01-19] MEDS ORDERED: propofol inj 20 ML IV ONE (19:17)
[2023-01-19] MEDS ORDERED: ceFAZolin 1000mg inj ONE ×2 (19:17)
[2023-01-19] MEDS ORDERED: LIDOcaine 1%/PF 5ML 10 MG/ML VIAL ONE (19:18)
[2023-01-19] MEDS ORDERED: dexamethasone sod phosphate 4mg/ml inj. ONE (19:19)
[2023-01-19] MEDS ORDERED: ondansetron/PF 4mg/2ml inj ONE (19:19)
--- NOTE | 2023-01-19 19:58 | NUR ---
Received from OR via , accompanied by Anesthesiologist DR BAILEY and report given by Anesthesiolgist. PT IS AWAKE AND ALERT, MOVING EXT X 4, SKIN WARM AND PINK, NO C/O PAIN, PIV LEFT AC 18G, LU TO GRAVITY DARK YELLOW. EXTERNAL FIXATOR IN PLACE.
[2023-01-19] MEDS: docusate sod 100mg capsule PO SCH (20:00)
[2023-01-19] MEDS: K and/or MAG REPLACEMENT MC SCH (20:00)
--- NOTE | 2023-01-19 21:08 | NUR ---
PT AWAKE AND ALERT, MOVES EXT X 4, LEFT PEDAL PULSE VIA DOPPLER, RIGHT PEDAL PULSE +2 BY PALPATION, PIV PATENT, EXTERNAL FIXATOR IN PLACE, SCD ON RIGHT LEG, LU TO GRAVITY DARK YELLOW, CANELO ICE WATER, PT MEETS DISCHARGE CRITERIA,
[2023-01-19] MEDS: heparin, porcine 5000 units/ml vial SQ SCH (21:55)
[2023-01-19] MEDS: traZODone 150mg tablet PO SCH (21:56)
[2023-01-20] MEDS: cefazolin 2gm/D5W 100mL 100 ML IV SCH ×3 (00:28→16:17)
[2023-01-20 00:55] VITALS: BP 133/77
[2023-01-20] MEDS: normal saline 1000ml 1,000 ML IV SCH ×2 (03:11→16:23)
[2023-01-20] MEDS: traMADol 50MG tablet PO SCH ×4 (03:12→19:44)
--- NOTE | 2023-01-20 06:42 | NUR ---
Patient in room PCU 3023. I have received report from ABBAK Martinez and had the opportunity to ask questions and assume patient care.
--- NOTE | 2023-01-20 06:43 | NUR ---
Problems reprioritized. Patient report given, questions answered & plan of care reviewed with BABAK ZAMAN.
[2023-01-20] MEDS: docusate sod 100mg capsule PO SCH ×2 (08:00→20:00)
[2023-01-20] MEDS: K and/or MAG REPLACEMENT MC SCH ×2 (08:00→18:57)
[2023-01-20] MEDS: hydrALAZINE 25 MG tablet PO SCH ×4 (08:12→21:16)
[2023-01-20] MEDS: ezetimibe 10mg tablet PO SCH (08:12)
[2023-01-20] MEDS: amLODIPine 5mg tablet PO SCH (08:13)
[2023-01-20] MEDS: losartan 50mg tablet PO SCH (08:13)
[2023-01-20] MEDS: atorvastatin 20mg tablet PO SCH (08:13)
[2023-01-20] MEDS: levoTHYROXINE 125mcg tablet PO SCH (08:14)
[2023-01-20] MEDS: FLUoxetine 20mg capsule PO SCH (08:14)
[2023-01-20] MEDS: heparin, porcine 5000 units/ml vial SQ SCH ×2 (08:15→19:45)
[2023-01-20] MEDS: fenofibrate 145mg tablet PO SCH (08:31)
[2023-01-20 08:38] VITALS: BP 162/64
[2023-01-20 09:14] LABS: BASOPHILS % (AUTO) 0.1 % (0-1); EOSINOPHILS % (AUTO) 0 % (0-6); HEMATOCRIT 34.7 % (35.0-45.0); HEMOGLOBIN 11.2 g/dl (12.0-16.0); LYMPHOCYTES # (AUTO) 0.3 X10'3 (1.1-4.8); MEAN CORPUSCULAR HEMOGLOBIN 31.2 PG (27.0-31.0); MEAN CORPUSCULAR HGB CONC 32.2 g/dL (33.0-36.5); MEAN PLATELET VOLUME 9.1 FL (7.4-10.4); MONOCYTES # (AUTO) 0.3 X10'3 (0-0.9); MONOCYTES % (AUTO) 4.5 % (2-12); NEUTROPHILS # (AUTO) 5.9 X10'3 (1.8-7.7); NEUTROPHILS % (AUTO) 90.4 % (42-75); PLATELET COUNT 222 X10'3 (140-440); RED BLOOD COUNT 3.58 X10'6 (4.20-5.60); RED CELL DISTRIBUTION WIDTH 15.1 % (11.5-14.5); WHITE BLOOD COUNT 6.5 X10'3 (4.5-11.0)
[2023-01-20 09:40] LABS: ALANINE AMINOTRANSFERASE 181 U/L (12-78); ALBUMIN 3.1 G/DL (3.4-5.0); ALKALINE PHOSPHATASE 141 IU/L (46-116); ANION GAP 10 (8-16); ASPARTATE AMINO TRANSFERASE 159 U/L (10-37); BILIRUBIN,TOTAL 0.4 MG/DL (0.1-1.0); BLOOD UREA NITROGEN 11 MG/DL (7-18); BUN/CREATININE RATIO 19.3 (10.0-20.0); CALCIUM 8.8 MG/DL (8.5-10.1); CHLORIDE 103 MMOL/L (99-107); CHOL/HDL RATIO 1.7 (0.00-4.99); CHOLESTEROL 122 MG/DL (0-200); CREATININE 0.57 MG/DL (0.40-0.90); GLUCOSE 165 MG/DL (70-104); HDL CHOLESTEROL 73 MG/DL (35-60); LDL CHOLESTEROL 35 MG/DL (50-100); MAGNESIUM 1.9 MG/DL (1.5-2.4); POTASSIUM 4.2 MMOL/L (3.5-5.1); SODIUM 136 MMOL/L (135-145); TOTAL CARBON DIOXIDE 23.5 MMOL/L (24-32); TOTAL PROTEIN 6.2 G/DL (6.4-8.2); TRIGLYCERIDES 132 MG/DL (20-135); eGFR > 90 ML/MIN
[2023-01-20] MEDS: HYDROcodone/acetaminophen 10/325mg tab PO PRN ×3 (10:47→21:21)
[2023-01-20 11:12] VITALS: BP 157/52
[2023-01-20 16:27] VITALS: BP 97/65
--- NOTE | 2023-01-20 16:45 | NUR ---
unable to do orthostatic vitals. patient bedrest and too painful. pt did not work with patient.
--- NOTE | 2023-01-20 18:40 | NUR ---
Problems reprioritized. Patient report given, questions answered & plan of care reviewed with Siddhartha Brasher.
[2023-01-20 20:00] VITALS: BP 113/62
[2023-01-20] MEDS: traZODone 150mg tablet PO SCH (21:16)
[2023-01-21] VITALS (8 sets, daily range): BP systolic 113–155; BP diastolic 49–78
[2023-01-21] MEDS ORDERED: temazepam 15mg capsule PO PRN (00:55)
[2023-01-21] MEDS: HYDROcodone/acetaminophen 10/325mg tab PO PRN ×5 (01:15→20:49)
[2023-01-21] MEDS: traMADol 50MG tablet PO SCH ×4 (01:21→20:00)
[2023-01-21] MEDS: normal saline 1000ml 1,000 ML IV SCH ×2 (04:14→19:05)
--- NOTE | 2023-01-21 07:06 | NUR ---
Patient in room PCU 3023. I have received report from Sameera HILLIARD and had the opportunity to ask questions and assume patient care.
[2023-01-21] MEDS: K and/or MAG REPLACEMENT MC SCH ×2 (08:00→19:30)
[2023-01-21] MEDS: docusate sod 100mg capsule PO SCH ×2 (08:00→20:00)
[2023-01-21 08:20] LABS: ALANINE AMINOTRANSFERASE 90 U/L (12-78); ALBUMIN 2.7 G/DL (3.4-5.0); ALBUMIN/GLOBULIN RATIO 0.8 (1.1-1.5); ALKALINE PHOSPHATASE 106 IU/L (46-116); ANION GAP 6 (8-16); ASPARTATE AMINO TRANSFERASE 49 U/L (10-37); BILIRUBIN,TOTAL 0.5 MG/DL (0.1-1.0); BLOOD UREA NITROGEN 11 MG/DL (7-18); BUN/CREATININE RATIO 17.2 (10.0-20.0); CALCIUM 8.6 MG/DL (8.5-10.1); CHLORIDE 106 MMOL/L (99-107); CREATININE 0.64 MG/DL (0.40-0.90); GLUCOSE 118 MG/DL (70-104); PHOSPHORUS 2.3 MG/DL (2.3-4.5); POTASSIUM 3.7 MMOL/L (3.5-5.1); SODIUM 140 MMOL/L (135-145); TOTAL CARBON DIOXIDE 27.8 MMOL/L (24-32); eGFR > 90 ML/MIN
[2023-01-21 08:43] LABS: BASOPHILS % (AUTO) 0.4 % (0-1); EOSINOPHILS # (AUTO) 0.1 X10'3 (0-0.9); EOSINOPHILS % (AUTO) 1.3 % (0-6); HEMATOCRIT 32.1 % (35.0-45.0); HEMOGLOBIN 10.4 g/dl (12.0-16.0); LYMPHOCYTES # (AUTO) 1.5 X10'3 (1.1-4.8); LYMPHOCYTES % (AUTO) 23.3 % (21-51); MEAN CORPUSCULAR HEMOGLOBIN 31.6 PG (27.0-31.0); MEAN CORPUSCULAR HGB CONC 32.5 g/dL (33.0-36.5); MEAN CORPUSCULAR VOLUME 97.3 FL (78-98); MEAN PLATELET VOLUME 9.2 FL (7.4-10.4); MONOCYTES # (AUTO) 0.6 X10'3 (0-0.9); MONOCYTES % (AUTO) 9.4 % (2-12); NEUTROPHILS # (AUTO) 4.3 X10'3 (1.8-7.7); NEUTROPHILS % (AUTO) 65.6 % (42-75); PLATELET COUNT 265 X10'3 (140-440); RED BLOOD COUNT 3.29 X10'6 (4.20-5.60); RED CELL DISTRIBUTION WIDTH 15.6 % (11.5-14.5); WHITE BLOOD COUNT 6.6 X10'3 (4.5-11.0)
[2023-01-21] MEDS: atorvastatin 20mg tablet PO SCH (09:24)
[2023-01-21] MEDS: FLUoxetine 20mg capsule PO SCH (09:25)
[2023-01-21] MEDS: levoTHYROXINE 125mcg tablet PO SCH (09:25)
[2023-01-21] MEDS: fenofibrate 145mg tablet PO SCH (09:25)
[2023-01-21] MEDS: amLODIPine 5mg tablet PO SCH (09:26)
[2023-01-21] MEDS: hydrALAZINE 25 MG tablet PO SCH ×4 (09:28→20:00)
[2023-01-21] MEDS: losartan 50mg tablet PO SCH (09:28)
[2023-01-21] MEDS: ezetimibe 10mg tablet PO SCH (09:28)
[2023-01-21] MEDS: heparin, porcine 5000 units/ml vial SQ SCH ×2 (09:32→20:01)
--- NOTE | 2023-01-21 18:18 | NUR ---
Problems reprioritized. Patient report given, questions answered & plan of care reviewed with Hilary VP [employer].
[2023-01-21] MEDS: traZODone 150mg tablet PO SCH (20:00)
--- NOTE | 2023-01-21 20:30 | NUR ---
ATTENDING ANESTHESIOLOGIST documentation: I have reviewed and agree with all interventions, assessments performed and documented by MENDY HO LVN.
[2023-01-22] MEDS: traMADol 50MG tablet PO SCH ×3 (02:07→12:53)
[2023-01-22 03:04] VITALS: BP 138/61
[2023-01-22] MEDS: HYDROcodone/acetaminophen 10/325mg tab PO PRN (03:59)
--- NOTE | 2023-01-22 05:39 | NUR ---
Charge nurse called BABAK Prado on [facility] to ask re: wound care tp pt's fixation surgical sites. Eve stated ok to replace saturated bandage, cleanse with betadine and replace gauze bandage until wound team could assess. LN administered wound careduring NOC shift. Incision sites are healing well without complication, no s/sx of infection noted.
[2023-01-22 06:19] LABS: BASOPHILS % (AUTO) 0.5 % (0-1); EOSINOPHILS # (AUTO) 0.1 X10'3 (0-0.9); EOSINOPHILS % (AUTO) 1.6 % (0-6); HEMATOCRIT 28.8 % (35.0-45.0); HEMOGLOBIN 9.3 g/dl (12.0-16.0); LYMPHOCYTES # (AUTO) 1.1 X10'3 (1.1-4.8); LYMPHOCYTES % (AUTO) 20.1 % (21-51); MEAN CORPUSCULAR HEMOGLOBIN 31.5 PG (27.0-31.0); MEAN CORPUSCULAR HGB CONC 32.4 g/dL (33.0-36.5); MEAN CORPUSCULAR VOLUME 97.1 FL (78-98); MEAN PLATELET VOLUME 8.7 FL (7.4-10.4); MONOCYTES # (AUTO) 0.5 X10'3 (0-0.9); MONOCYTES % (AUTO) 10.1 % (2-12); NEUTROPHILS # (AUTO) 3.6 X10'3 (1.8-7.7); NEUTROPHILS % (AUTO) 67.7 % (42-75); PLATELET COUNT 234 X10'3 (140-440); RED BLOOD COUNT 2.97 X10'6 (4.20-5.60); RED CELL DISTRIBUTION WIDTH 15.2 % (11.5-14.5); WHITE BLOOD COUNT 5.4 X10'3 (4.5-11.0)
[2023-01-22 06:36] LABS: ALANINE AMINOTRANSFERASE 54 U/L (12-78); ALBUMIN 2.5 G/DL (3.4-5.0); ALBUMIN/GLOBULIN RATIO 0.8 (1.1-1.5); ALKALINE PHOSPHATASE 87 IU/L (46-116); ANION GAP 7 (8-16); ASPARTATE AMINO TRANSFERASE 24 U/L (10-37); BILIRUBIN,TOTAL 0.4 MG/DL (0.1-1.0); BLOOD UREA NITROGEN 8 MG/DL (7-18); BUN/CREATININE RATIO 16.7 (10.0-20.0); CALCIUM 8.3 MG/DL (8.5-10.1); CHLORIDE 104 MMOL/L (99-107); CREATININE 0.48 MG/DL (0.40-0.90); GLUCOSE 129 MG/DL (70-104); MAGNESIUM 1.7 MG/DL (1.5-2.4); PHOSPHORUS 2.4 MG/DL (2.3-4.5); POTASSIUM 3.6 MMOL/L (3.5-5.1); SODIUM 138 MMOL/L (135-145); TOTAL CARBON DIOXIDE 27.3 MMOL/L (24-32); TOTAL PROTEIN 5.6 G/DL (6.4-8.2); eGFR > 90 ML/MIN
[2023-01-22] MEDS: levoTHYROXINE 125mcg tablet PO SCH (08:24)
[2023-01-22] MEDS: docusate sod 100mg capsule PO SCH (08:24)
[2023-01-22] MEDS: FLUoxetine 20mg capsule PO SCH (08:24)
[2023-01-22] MEDS: ezetimibe 10mg tablet PO SCH (08:24)
[2023-01-22] MEDS: amLODIPine 5mg tablet PO SCH (08:25)
[2023-01-22] MEDS: losartan 50mg tablet PO SCH (08:25)
[2023-01-22] MEDS: hydrALAZINE 25 MG tablet PO SCH ×2 (08:25→12:53)
[2023-01-22] MEDS: atorvastatin 20mg tablet PO SCH (08:25)
[2023-01-22] MEDS: fenofibrate 145mg tablet PO SCH (08:26)
[2023-01-22] MEDS: heparin, porcine 5000 units/ml vial SQ SCH (08:28)
[2023-01-22 08:50] VITALS: BP 147/84
[2023-01-22 08:51] VITALS: BP 114/72
[2023-01-22 10:00] VITALS: BP 128/76
[2023-01-22 12:53] VITALS: BP_SYST 128
--- NOTE | 2023-01-22 15:17 | NUR ---
Patient discharged to [facility]. All personal belongings left with patient. Patient transported by [employer]. Report not given to nurse at [facility] due to no answer. Called at 1530 and nurse answered and I was able to give propper report. Patients medications from pharmacy given to patient and all paper work signed.
== END 2023-01-22 13:09 | DRG 493 ==
LOC: ER 08:11 → ED HOLD 13:47 → PCU 3S 19:56
PROVIDERS: ADMIT Family Medicine; ATTEND Family Medicine
PROC: 0QHH05Z Insertion of External Fixation Device into Left Tibia, Open Approach (ICD-10-PCS; principal; 2023-01-19 18:51)
DX: S82.102A Unspecified fracture of upper end of left tibia, initial encounter for closed fracture (principal); D62 Acute posthemorrhagic anemia; N17.9 Acute kidney failure, unspecified; E03.9 Hypothyroidism, unspecified; E78.5 Hyperlipidemia, unspecified; F32.A Depression, unspecified; F41.9 Anxiety disorder, unspecified; G89.4 Chronic pain syndrome; Z96.611 Presence of right artificial shoulder joint; Z96.612 Presence of left artificial shoulder joint; Z96.651 Presence of right artificial knee joint; W01.0XXA Fall on same level from slipping, tripping and stumbling without subsequent striking against object, initial encounter; Z60.2 Problems related to living alone; I10 Essential (primary) hypertension; E86.0 Dehydration; K21.9 Gastro-esophageal reflux disease without esophagitis; M17.12 Unilateral primary osteoarthritis, left knee; S82.832A Other fracture of upper and lower end of left fibula, initial encounter for closed fracture; Z79.899 Other long term (current) drug therapy; Z80.8 Family history of malignant neoplasm of other organs or systems; Z82.49 Family history of ischemic heart disease and other diseases of the circulatory system; Z86.73 Personal history of transient ischemic attack (TIA), and cerebral infarction without residual deficits; Z90.710 Acquired absence of both cervix and uterus; Z95.0 Presence of cardiac pacemaker; Z98.84 Bariatric surgery status; Y93.89 Activity, other specified; Y92.098 Other place in other non-institutional residence as the place of occurrence of the external cause; Y99.8 Other external cause status; Z56.0 Unemployment, unspecified; Z90.49 Acquired absence of other specified parts of digestive tract
CPT/HCPCS: 36415; 71045; 73552; 73590; 73700; 76000; 80053; 80061; 81003; 82550; 83036; 83735; 84100; 84443; 85025; 86885; 86900; 86901; 87081; 93005; 93306; 96374; 96376; 97161; 97530; 99285; A4615; A4618; A6222; A6258; A6446; A6449; A7000; C1713; G0378; J0131; J0690; J0735; J1100; J1644; J2175; J2250; J2270; J2405; J2704; J2795; J3010; J3490; J7030; J7120